=== PATIENT | male | born 1945 | race Caucasian/White ===

== ENCOUNTER → 2020-09-03 | Outpatient (CLI) | payer OTHER ==
[~2020-09-03] MED LIST: CARVEDILOL12.5 MG PO; FUROSEMIDE 20 M20 MG PO; KLOR-CON 10 ER10 MEQ PO; LISINOPRIL5 MG PO; ZOCOR20 MG PO
--- NOTE | 2020-09-03 16:08 | CARDNUC ---
[place] [address] CARDIAC NUCLEAR IMAGING REPORT Name: ANITRA NELSON Room: [facility]#: [id number] Admission: 09/03/20 Attend Phys: Jose Kennedy, Discharge: Date of : 45 Date of Service: 09/03/20 1608 Report #: [id number] THIS REPORT FOR: cc: FAM - No family physician/PCP FAM - No family physician/PCP Santos Michel MD [facility] ~ APPROVED REPORT Study performed: 09/03/2020 14:21:57 Exam: Nuclear Stress Test Indication: Non-ischemic dilated cardiomyopathy Patient Location: Out-Patient Stress Tech: Melida Bruno Stress Nurse: Wendi Shelley R.N. NM Tech:NAHOMY [place] Ht: 6 ft 1 in Wt: 223 lbs BSA: 2.25 m2 BMI: 29.41 Medical History Medical History: HTN, HLD, NON-ISCHEMIC DILATED CARDIOMYOPATHY, S/P COVID - 19 WITH RESIDUAL PHYSICAL SYMPTOMS, PAST SMOKER, CHF, LEG PAIN, UNSTABLE GAIT. Medications: CARVEDILOL, LASIX, LISINOPRIL, K-DUR, SIMVASTATIN. Allergies: No known drug allergies Cardiac Risk Factors: Age, HTN, Hyperlipidemia, Past Smoker, Non-ischemic dilated cardiomyopathy. Previous Cardiac Procedures: NONE Pretest Chest Pain Characteristics: No chest pain Exercise History: Sedentary Physical Disabilities: leg pain, unstable gait, weakness, wheelchair use. Meds Held (24 hrs): CARVEDILOL. Stress Test Details Stress Test: Pharmacologic stress testing performed using 0.4 mg of regadenoson per 5 mL given IV over 10 seconds. Reason for pharmacologic stress test: leg pain, unstable gait, weakness, wheelchair use.. HR Resting HR: 62 bpm Max Heart Rate (APMHR): 145 bpm Max HR Achieved: 92 bpm Target HR (85% APMHR): 123 [place] [address] CARDIAC NUCLEAR IMAGING REPORT Name: ANITRA NELSON Room: [facility]#: [id number] Admission: 09/03/20 Attend Phys: Jose Kennedy, Discharge: Date of : 45 Date of Service: 09/03/20 1608 Report #: [id number] % of APMHR: 63 Recovery HR: 75 bpm BP Resting BP: 119/59 mmHg Max BP: 104/44 mmHg ECG Resting ECG: Sinus Rhythm, nonspecific ST-T abnormalities Stress ECG: Sinus Rhythm, nonspecific ST-T abnormalities ST Change: None Arrhythmia: None Recovery ECG: Sinus Rhythm, nonspecific ST-T abnormalities Recovery ST Change: None Recovery Arrhythmia: None Clinical Reason for Termination: Completed protocol Stress Symptoms: leg ache, knee soreness. Exercise duration: 00 min 00 sec Exercise capacity: 1.00 METs The patient tolerated Lexiscan infusion without significant cardiac symptoms. Nurse Comments A 75 year old male tolerated a sitting Lexiscan nuclear stress test. Patient was stable and stated he felt good when escorted via wheelchair to nuclear medicine for imaging. Stress ECG Conclusion The baseline twelve-lead EKG shows sinus rhythm with nonspecific ST segment depression diffusely. EKGs obtained during and post Lexiscan infusion show sinus rhythm with continued nonspecific ST segment depression diffusely that is not significantly changed from baseline. There were no stress-induced arrhythmias. NM EXAM: Myocardial Perfusion REST/STRESS Imaging Protocol: Rest Tc-99m/Stress Tc-99m 1 day Resting Data Rest SPECT myocardial perfusion imaging was performed in supine position 30 minutes following the intravenous injection of 10.6 mCi of Tc-99m Sestamibi. Time of rest injection: 1305 Date: 09/03/2020 [place] [address] CARDIAC NUCLEAR IMAGING REPORT Name: ANITRA NELSON Room: [facility]#: [id number] Admission: 09/03/20 Attend Phys: Jose Kennedy, Discharge: Date of : 45 Date of Service: 09/03/20 1608 Report #: [id number] The images were gated to evaluate regional wall motion and calculate left ventricular ejection fraction. Administration Route: IV Administration Site: Right Hand Pharmacologic Stress Pharmacologic stress test was performed by injecting Regadenoson 0.4 mg IV push followed by the intravenous injection of 31.8 mCi of Tc-99m Sestamibi. Time of stress injection: 1430 Date: 09/03/2020 Administration Route: IV Administration Site: Right Hand Gated Stress SPECT was performed 40 minutes after stress injection. The images were gated to evaluate regional wall motion and calculate left ventricular ejection fraction. Study Quality Study: Fair Artifact: Moderate Diaphragmatic artifact Study Data At rest, the left ventricular ejection fraction was 40%.. Post stress, the left ventricular ejection was 31%.. TID = 1.12. Perfusion Perfusion images show a large in size fixed defect involving the basal to apical inferior wall. No other fixed or reversible defects are identified. Review of the raw data shows significant diaphragmatic and intestinal uptake contributing to attenuation artifact. Wall Motion There is global hypokinesis without obvious focal wall motion abnormality. Nuclear Conclusion ECG Findings: non-diagnostic Clinical Findings: negative for ischemia Nuclear Findings: negative for ischemia Exercise Capacity: not assessed Left Ventricular Function: abnormal Perfusion studies show a fixed defect of the inferior wall that is likely due to diaphragmatic attenuation artifact. There is global hypokinesis and moderate to severe LV [place] [address] CARDIAC NUCLEAR IMAGING REPORT Name: ANITRA NELSON Room: [facility]#: [id number] Admission: 09/03/20 Attend Phys: Jose Kennedy, Discharge: Date of : 45 Date of Service: 09/03/20 1608 Report #: [id number] focal wall motion abnormality. Findings most consistent with a nonischemic cardiomyopathy. Inferior wall defect likely due to diaphragmatic attenuation as wall motion in this region is not significantly different from the remainder of the left ventricle on gated studies. This is a moderate risk study. <Conclusion> The baseline twelve-lead EKG shows sinus rhythm with nonspecific ST segment depression diffusely. EKGs obtained during and post Lexiscan infusion show sinus rhythm with continued nonspecific ST segment depression diffusely that is not significantly changed from baseline. There were no stress-induced arrhythmias. <ELECTRONICALLY SIGNED> By: Santos Michel MD, FACC 09/03/20 1608 1608 1608 Santos Michel MD, FACC /INF
== END ==
LOC: M.NUC 08-21 10:34
PROVIDERS: ATTEND Internal Medicine
DX: I11.0 Hypertensive heart disease with heart failure (principal); I42.0 Dilated cardiomyopathy; E78.2 Mixed hyperlipidemia